=== PATIENT | male | born 2000 | race Caucasian/White ===

== ENCOUNTER 2022-06-11 22:40 | Emergency (ER) | payer SELFPAY ==
[2022-06-11 22:55] VITALS: BP 140/74; PULSE 80; RESP 18; TEMP 36.6; O2SAT 99; BMI 23.0
[2022-06-11 22:58] VITALS: BP 140/74; PULSE 80; RESP 18; TEMP 36.6; O2SAT 99; BMI 23.0
--- NOTE | 2022-06-11 23:04 | CRLHL7_ITS ---
For Patients: As a result of the Century Cures Act, medical imaging exams and procedure reports are released immediately into your electronic medical record. You may view this report before your referring provider. If you have questions, please contact your health care provider. Indication: Pain after fall from ladder. Technique: Right wrist, 3 views Comparison: None. Findings: Bones: Lucency through the scaphoid is seen best on the AP projection extends to the cortical surface. Joint spaces: Unremarkable. Soft tissues: Unremarkable. Impression: Questionable nondisplaced scaphoid fracture. Consider dedicated navicular view if there is snuffbox tenderness. Dictated by Fredis Salvador MD @ 06/11/2022 11:58:34 PM (Electronically Signed)
--- NOTE | 2022-06-11 23:37 | ED.UPPEXIN ---
HPI - Extremity Injury (Upper) General Chief Complaint: Extremity Pain/Injury, Upper Stated Complaint: Fell off roof earlier, right wrist swelling Time Seen by Provider: 06/11/22 22:49 History of Present Illness HPI narrative: Pt is a 22 year old gentleman who fell off of a ladder today landing on his right wrist. Pt has 5/10 pain in the wrist as well as limited ROM. No difficulty with the hand or fingers. No neurological defects and good circulation. Pt did not hit head. No LOC. No treatments prior to arrival. Related Data Home Medications Medication Instructions Recorded Confirmed No Known Home Medications 06/11/22 06/11/22 Allergies Allergy/AdvReac Type Severity Reaction Status Date / Time No Known Drug Allergies Allergy Verified 06/11/22 22:58 Review of Systems Status of ROS: Reports: 10 or more systems reviewed and unremarkable except as noted in History and below [facility] Medical History (Updated 06/11/22 @ 23:58 by Yayo Williamson MD) No significant past medical history Surgical History H/O inguinal hernia repair Social History Smoking Status: Never smoker Do you use any of these nicotine containing products: Vaping Products Second hand tobacco smoke exposure: No How often do you have a drink containing alcohol: never How often do you have six or more drinks on one occasion: Never AUDIT-C Alcohol total score: 0 Non-prescribed substance use: denies use Exam Narrative: Exam Narrative: EXAM GENERAL: Patient appears comfortable and well. EYES: No scleral icterus. ENT: Tympanic membranes and oropharynx normal. THYROID: no thyroid nodules or thyromegaly. LYMPH: No supraclavicular or cervical lymphadenopathy. SKIN: Minor scrapes right elbow EXT: Mild swelling with his right wrist. No neural muscular or vascular defects. HEART: Regular rate and rhythm with no murmurs, rubs, or gallops. LUNGS: Clear to auscultation bilaterally with no crackles or wheezes. ABD: Soft, non tender, non distended. PSYCH: Good eye contact, speech is not pressured. Const: Vital Signs, click to edit/add: Vital Signs - 24 hr 06/11/22 22:55 06/11/22 22:58 Temperature 97.8 F 97.8 F Pulse Rate [Right Pulse Oximeter] 80 80 Respiratory Rate 18 18 Blood Pressure [Le ft Upper Arm] 140/74 H 140/74 H Pulse Oximetry 99 99 Oxygen Delivery Me thod Room Air Room Air Course Course Hospital Course: X-ray series right wrist is negative upon my review. Patient is up-to-date on his tetanus shot. Vital Signs Vital signs: Initial Vital Signs Temperature 97.8 F 06/11/22 22:55 Temperature Source Temporal Artery Scan 06/11/22 22:55 Pulse Rate 80 06/11/22 22:55 Respiratory Rate 18 06/11/22 22:55 Blood Pressure 140/74 H 06/11/22 22:55 Blood Pressure Mean 96 06/11/22 22:55 Blood Pressure Position Sitting 06/11/22 22:55 Pulse Oximetry 99 06/11/22 22:55 Oxygen Delivery Method 06/11/22 22:55 Vital Signs Temperature 97.8 F 06/11/22 22:55 Pulse Rate 80 06/11/22 22:55 Respiratory Rate 18 06/11/22 22:55 Blood Pressure 140/74 H 06/11/22 22:55 Pulse Oximetry 99 06/11/22 22:55 Oxygen Delivery Method 06/11/22 22:55 Temperature 97.8 F 06/11/22 22:58 Pulse Rate 80 06/11/22 22:58 Respiratory Rate 18 06/11/22 22:58 Blood Pressure 140/74 H 06/11/22 22:58 Pulse Oximetry 99 06/11/22 22:58 Oxygen Delivery Method 06/11/22 22:58 MDM - Extremity Injury (Upper) MDM Narrative Medical decision making narrative: Pt presents with a wrist injury. Pt's x ray is negative upon my review. Pt treated wit spint, ice, rest, tyelnol and motrin. Differential Diagnosis Differential diagnosis: Likely sprain and strain of wrist, fracture of wrist and fracture of hand Discharge Plan Discharge Clinical Impression: Sprain and strain of wrist Patient Disposition: Home, Self-Care Condition: Stable Instructions: Wrist Sprain (ED) Additional Instructions: Splint as needed Ice Tylenol Motrin Activity Level: No Restrictions Discharge Diet: Regular Prescriptions: No Action No Known Home Medications Follow Up/Referrals: Provider,Not a Local [Primary Care Provider] - Stand Alone Forms: [employer] Info Instructions
--- OUTSIDE RECORDS SUMMARY | 2022-06-11 23:43 | XMS_ITS | Encounter Summary ---
:2000 Author Organization [facility] Address [address] [place] [id number] Care Team Providers Name Role Phone No Ref-Primary, Physician Primary Care Provider [phone] Reason for Referral Diagnostic Imaging Ultrasound (Routine) - Pending Review Specialty Diagnoses / Procedures Referred By Contact Refer red To Contact Diagnoses Epididymitis, left Jesus Palafox PA-C Procedures US Testicular & Scrotum w [facility] [address] [place] [address] 0 Referral ID Status Reason Start Date Expiration Date Visits V isits Requested Authorized [id number] Pending 12/15/2021 12/15/2022 1 1 Review Reason for Visit Diagnostic Imaging Ultrasound (Routine) - Pending Review Specialty Diagnoses / Procedures Referred By Contact Refer red To Contact Diagnoses Epididymitis, left Jesus Palafox PA-C Procedures US Testicular & Scrotum w [facility] [address] [place] [address] 0 Referral ID Status Reason Start Date Expiration Date Visits V isits Requested Authorized [id number] Pending 12/15/2021 12/15/2022 1 1 Review Encounter Details Date Type Department Care Team Description 12/15/2021 [facility] Jesus Palafox Epi didymitis, left [facility] [address] [place] [id number] [phone] Social History Tobacco Use Types Packs/Day Years Used Date Current Some Day Smoker Smokeless Tobacco: Never Used Comments: vape Alcohol Use Standard Drinks/Week Comments Not Currently 0 (1 standard drink = 0.6 oz pure alcoho l) Sex Assigned at Date Recorded Male 12/17/2021 12:34 AM CDT COVID-19 Exposure Response Date Recorded In the last month, have you been in contact with No / Unsure 12/15/2021 2:43 PM CDT someone who was confirmed or suspected to have Coronavirus / COVID-19? documented as of this encounter Medications at Time of Discharge Medication Sig Dispensed Refills Start Date End Date cephALEXin (KEFLEX) 500 Take 500 mg by mouth 0 MG capsule 2 times daily ibuprofen (ADVIL/MOTRIN) Take 1 tablet (800 30 tablet 0 04/2022 800 MG mg) by mouth every 8 tabletIndications: hours as needed for Epididymitis, left, moderate pain Epidermoid cyst of skin of inguinal region ondansetron (ZOFRAN) 4 TAKE 1 TABLET BY 0 12/06/2 022 MG tablet MOUTH EVERY 6 HOURS NEEDED sulfamethoxazole-trimeth Take 1 tablet by 20 tablet 0 12/1512/25/2021 oprim (BACTRIM DS) mouth 2 times daily 800-160 MG for 10 days tabletIndications: Epidermoid cyst of skin of inguinal region documented as of this encounter Plan of Treatment Not on filedocumented as of this encounter Procedures Procedure Name Priority Date/Time Associated Comments Diagnosis US TESTICULAR AND STAT 12/15/2021 4:09 PM Epididymitis, lef t Results for this SCROTUM WITH DOPPLER CDT procedu re are in LIMITED the results section. documented in this encounter Results US Testicular & Scrotum w [facility] (12/15/2021 4:09 PM CDT) Anatomical Region Laterality Modality Abdomen/Pelvis Ultrasound Specimen (Source) Anatomical Location Collection Method / Collectio n Time Received Time / Laterality Volume Impressions 12/15/2021 4:31 PM CDT IMPRESSION: 1. ??A 1.3 x 1.1 x 0.6 cm collection wit h complex fluid in the left groin corresponds to palpable abnormalit y and may be a small subdermal abscess or inflamed sebaceous cyst. 2. ??Possible small thrombosed vein late ral to the right testicle. 3. ??Small left hydrocele. JHONNY BREWER MD Narrative 12/15/2021 4:31 PM CDT US TESTICULAR AND SCROTUM WITH DOPPLER LIMITED 12/15/2021 4:09 PM CLINICAL HISTORY: Epididymitis, left TECHNIQUE: Ultrasound of scrotum with co romeo flow and spectral Doppler with waveform analysis performed. COMPARISON: None. FINDINGS: RIGHT: Right testicle measures 4.8 x 3.3 x 1.9 cm. Normal testicle with no masses. Normal arterial duplex a nd normal color flow. Normal epididymis with a 2 mm benign cyst. No h ydrocele. No varicocele. Small vessel lateral to the right testicle alexander s not fill with color without and with Valsalva maneuver and may be a small thrombosed vein. LEFT: Left testicle measures 4.2 x 3.2 x 1.9 cm. Normal testicle with no masses. Normal arterial duplex and no rmal color flow. Normal epididymis with a benign cyst measuring 3 mm. Small hydrocele. No varicocele. The palpable abnormality in the left groin is a subdermal 1.3 x 0.6 x 1.1 cm cystic avascular lesi on containing small amount of complex fluid. Procedure Note Jhonny Brewer MD - 12/15/2021 US TESTICULAR AND SCROTUM WITH DOPPLER L IMITED 12/15/2021 4:09 PM CLINICAL HISTORY: Epididymitis, left TECHNIQUE: Ultrasound of scrotum with co romeo flow and spectral Doppler with waveform analysis performed. COMPARISON: None. FINDINGS: RIGHT: Right testicle measures 4.8 x 3.3 x 1.9 cm. Normal testicle with no masses. Normal arterial duplex a nd normal color flow. Normal epididymis with a 2 mm benign cyst. No h ydrocele. No varicocele. Small vessel lateral to the right testicle alexander s not fill with color without and with Valsalva maneuver and may be a small thrombosed vein. LEFT: Left testicle measures 4.2 x 3.2 x 1.9 cm. Normal testicle with no masses. Normal arterial duplex and no rmal color flow. Normal epididymis with a benign cyst measuring 3 mm. Small hydrocele. No varicocele. The palpable abnormality in the left groin is a subdermal 1.3 x 0.6 x 1.1 cm cystic avascular lesi on containing small amount of complex fluid. IMPRESSION: 1. A 1.3 x 1.1 x 0.6 cm collection with complex fluid in the left groin corresponds to palpable abnormalit y and may be a small subdermal abscess or inflamed sebaceous cyst. 2. Possible small thrombosed vein latera l to the right testicle. 3. Small left hydrocele. 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
--- OUTSIDE RECORDS SUMMARY | 2022-06-11 23:43 | XMS_ITS | Encounter Summary ---
:2000 Author Organization [facility] Address [address] [facility] [address] Care Team Providers Name Role Phone No Ref-Primary, Physician Primary Care Provider [phone] Reason for Referral Consultation (Routine: Next available opening) - Closed Specialty Diagnoses / Procedures Referred By Contact Refer red To Contact Diagnoses Najma Coffey PA-C [facility] [address] [address] [place] [address] [address] [place] [address] Phone: Fax: Referral ID Status Reason Start Date Expiration Date Visits Requ ested Visits Authorized [id number] Closed 12/15/2021 12/15/2022 1 1 Reason for Visit Reason Comments Pain pain in left testicle, x yes terday--- WAS seen last seen at [facility] for stomach and abimael ticle issue Encounter Details Date Type Department Care Team Description 12/15/2021 Office Visit [facility], Nodule of groin (Primary Dx); Urgent Care Blue Yao PA-C Testicular pain, left [id number] [place] [address] [phone] Social History Tobacco Use Types Packs/Day Years [...] / COVID-19? documented as of this encounter Last Filed Vital Signs Vital Sign Reading Time Taken Comments Blood Pressure 110/64 12/15/2021 1:09 PM CDT Pulse 84 12/15/2021 1:09 PM CDT Temperature 36.7 ??C (98 ??F) 12/15/2021 1:09 PM CDT Respiratory Rate 16 12/15/2021 1:09 PM CDT Oxygen Saturation 97% 12/15/2021 1:09 PM CDT Inhaled Oxygen Concentration - - Weight 80.7 kg (178 lb) 12/15/2021 1:09 PM CDT Height - - Body Mass Index - - documented in this encounter Patient Instructions Patient InstructionsMaNajma castellon PA-C - 12/15/2021 12:55 PM CDT Please go to the [facility] for further ervaluaiton and treatment. documented in this encounter Progress Notes Najma Thomas PA-C - 12/15/2021 12:55 PM CDT Assessment & Plan Nodule of groin DDx includes benign mass such as lipoma, possible reactive lymphnode though seems low and superficial, possible superifical skin abscess, sebaceous cyst. Improved initially and then worsening despite appropriate abx. Recommend consideration of US to determine if this is a drainable lesion, further define in terms ofpossible lymphnode. Testicular pain, left Clinically suspicious for epididymitis, though would expect this to be improved with doxycycline. Would recommend STI screening, consider alternative abx. Consider US of the testicle Discussed with provider at [facility] and agreeable to be seen for consideration of US and further treatment and follow up. Pt agreeable. Referral to Acute and Diagnostic Services [facility] has been contacted at [phone] ([place]) to confirm patient acceptance. The transition to Acute & Diagnostic Services Clinic has been discussed with patient, and he agrees with next level of care. Patient understands that evaluation/treatment at [facility] typically takes significantly longer than in clinic/urgent care (>2 hours). Special issues: None Referral placed: Yes Patient has transportation arranged and will travel to the [facility] without delay: Yes Patient aware not to eat or drink. Yes The following provider has assessed this patient for intervention at [facility], and directed the patient for referral: ES Schmidt PA-C Brittney Matheson, PA-C [facility] YARITZA Borrego is a 21 year old male who presents to clinic today for the following health issues: Chief Complaint Patient presents with ??? Pain pain in left testicle, x yesterday--- WAS seen last seen at [facility] for stomach and testicle issue HPI 2 months of chronic abdomen pain and diarrhea, seen by clinic provider in [place]. C diff negative. Seen in ED on for same, and CT scan was negative. Has lost 25 lbs. Then found a lump lateral to the L testicle, treated with abx but uncertain of kind of abx, did get some smaller and now painful. Has planned Follow-up with GI next week for for endoscopy, colonoscopy. Review of Systems Constitutional: Positive for appetite change, fatigue and unexpected weight change (25 lbs, has appropriate fu as per HPI ). Negative for fever. HENT: Negative. Eyes: Negative. Respiratory: Negative. Cardiovascular: Negative. Gastrointestinal: Positive for abdominal pain (chornic, has GI fu plan ), diarrhea and nausea. Genitourinary: Positive for dysuria and testicular pain. Negative for decreased urine volume, difficulty urinating, frequency, genital sores, hematuria, penile discharge, scrotal swelling and urgency. Musculoskeletal: Negative. Skin: Negative. Neurological: Negative. Psychiatric/Behavioral: Negative. Objective BP 110/64 (BP Location: Right arm, Patient Position: Chair, Cuff Size: Adult Regular) Pulse 84 Temp 98 ??F (36.7 ??C) (Oral) Resp 16 Wt 80.7 kg (178 lb) SpO2 97% Physical Exam nad appears well Abdomen: BS active, soft, nondistended, nontender to light or deep palpation. No rebound or peritoneal signs noted. No masses or hsm. exam: damien stage 5, testicles decended B, L with tender epidimys but otherwise nontender. No swelling or masses. R testicle without masses or tenderness. There is a 2 cm firm nodule that is TTP just lateral to the scrotum adjacent to the inguinal region.There appears to be a small central pore, it is well circumscized, no erythema or cellulitis noted. He does have mild erythema in the inguinal and medial thigh crease B. 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
--- OUTSIDE RECORDS SUMMARY | 2022-06-11 23:43 | XMS_ITS | Encounter Summary ---
:2000 Author Organization [facility] Address [facility] [place] [address] Care Team Providers Name Role Phone No Ref-Primary, Physician Primary Care Provider [phone] Reason for Referral Consultation (Routine: Next available opening) - Pending Review Specialty Diagnoses / Procedures Referred By Contact Refer red To Contact Dermatology Diagnoses Epidermoid cyst of skin of inguinal region Jesus Palafox PA-C [facility] [address] [place], [place] [address] [facility] [address] [place] [address] Phone: Referral ID Status Reason Start Date Expiration Date Visits V isits Requested Authorized [id number] Pending 12/15/2021 12/15/2022 1 1 Review iagnostic Imaging Ultrasound (Routine) - Pending Review Specialty Diagnoses / Procedures Referred By Contact Refer red To Contact Diagnoses Epidermoid cyst of skin of inguinal region Jesus Palafox PA-C Procedures US Lower Extremity Non Vascular Left [address] [place], [place] [address] Referral ID Status Reason Start Date Expiration Date Visits V isits Requested Authorized [id number] Pending 12/15/2021 12/15/2022 1 1 Review iagnostic Imaging Ultrasound (Routine) - Pending Review Specialty Diagnoses / Procedures Referred By Contact Refer red To Contact Diagnoses Epididymitis, left Jesus Palafox PA-C Procedures US Testicular & Scrotum w Doppler Ltd [address] [place], [place] [address] Referral ID Status Reason Start Date Expiration Date Visits V isits Requested Authorized [id number] Pending 12/15/2021 12/15/2022 1 1 Review Reason for Visit Reason Comments Testicular Problem Left sided bump and pain X 2 -3 weeks Consultation (Routine: Next available opening) - Closed Specialty Diagnoses / Procedures Referred By Contact Refer red To Contact Diagnoses Najma Coffey PA-C [facility] [address] [place], [place] [address] [address] [place] [address] Phone: Fax: Referral ID Status Reason Start Date Expiration Date Visits Requ ested Visits Authorized [id number] Closed 12/15/2021 12/15/2022 1 1 Encounter Details Date Type Department Care Team Description 12/15/2021 Office Visit [facility] Jesus Palafox, Epidid ymitis, left (Primary Dx); [facility] [place] PA-C Epidermoid cyst of skin of inguinal marah on; [address] [facility] [address] Hydrocele, left [address] [place] [id number] Social History Tobacco Use Types Packs/Day Years [...] Sign Reading Time Taken Comments Blood Pressure 133/92 12/15/2021 2:46 PM CDT Pulse 85 12/15/2021 2:46 PM CDT Temperature 36.8 ??C (98.2 ??F) 12/15/2021 2:46 PM CDT Respiratory Rate 18 12/15/2021 2:46 PM CDT Oxygen Saturation 97% 12/15/2021 2:46 PM CDT Inhaled Oxygen Concentration - - Weight 80.7 kg (178 lb) 12/15/2021 2:46 PM CDT Height - - Body Mass Index - - documented in this encounter Progress Notes Jesus Palafox PA-C - 12/15/2021 2:30 PM CDT Assessment & Plan Epididymitis, left Patient has some mild tenderness in this area Motrin prn for discomfort STD pending Check my chart for results - US Testicular & Scrotum w Doppler Ltd; Future - UA with Microscopic reflex to Culture - NEISSERIA GONORRHOEA PCR - CHLAMYDIA TRACHOMATIS PCR - ibuprofen (ADVIL/MOTRIN) 800 MG tablet; Take 1 tablet (800 mg) by mouth every 8 hours as needed for moderate pain Epidermoid cyst of skin of inguinal region An epidermoid cyst is a small abnormal growth in the top layers of the skin. It's filled with keratin, the same proteins that make up your hair and nails. These cysts grow slowly. They can grow anywhere on the body. But they are most often found on the face, behind the ears, and on the chest or upper back. Trial course of bactrim for this If this fails to resolve then it may need to be surgically removed Referral for derm given to patient - US Lower Extremity Non Vascular Left; Future - sulfamethoxazole-trimethoprim (BACTRIM DS) 800-160 MG tablet; Take 1 tablet by mouth 2 times dailyfor 10 days - ibuprofen (ADVIL/MOTRIN) 800 MG tablet; Take 1 tablet (800 mg) by mouth every 8 hours as needed for moderate pain - Adult Dermatology Referral; Future Hydrocele, left The testicles first form in the abdomen of the male fetus. Just before , the testicles move down into the scrotum. As this happens, fluid from the abdomen may pass into the scrotum and become sealed off there in a small sac. This is called a non-communicating hydrocele. In some babies, the passage between the abdomen and the scrotum remains open. In this case, the bulge may get bigger and smaller as the fluid passes back and forth from the abdomen to the scrotum. Thisis called a communicating hydrocele. The danger of this second kind of hydrocele is that it can lead to a hernia. A hernia looks like a painless bulge in the groin or scrotum. A hernia in a baby can cause tissue (gangrene) and rupture of the intestine. This is a life- threatening emergency and requires surgery right away. So you should watch for this condition. Most hydroceles shrink and disappear by the age of 1 or 2 years and need no treatment. If the hydrocele doesn't go away by 2 years of age, it may need to be corrected with surgery. Home care A small hydrocele won't interfere in any way with normal activity. You don't need to take any special precautions. Just observe the size of your baby's scrotum as you provide daily care and tell your child's healthcare provider right away if you notice any changes. CONSULTATION/REFERRAL to Derm for dermoid cyst removal No follow-ups on file. Jesus Palafox PA-C [facility] Results for orders placed or performed during the hospital encounter of 12/15/21 US Testicular & Scrotum w Doppler Ltd Status: None Narrative US TESTICULAR AND SCROTUM WITH DOPPLER LIMITED 12/15/2021 4:09 PM CLINICAL HISTORY: Epididymitis, left TECHNIQUE: Ultrasound of scrotum with color flow and spectral Doppler with waveform analysis performed. COMPARISON: None. FINDINGS: RIGHT: Right testicle measures 4.8 x 3.3 x 1.9 cm. Normal testicle with no masses. Normal arterial duplex and normal color flow. Normal epididymis with a 2 mm benign cyst. No hydrocele. No varicocele. Small vessel lateral to the right testicle does not fill with color without and with Valsalva maneuver and may be a small thrombosed vein. LEFT: Left testicle measures 4.2 x 3.2 x 1.9 cm. Normal testicle with no masses. Normal arterial duplex and normal color flow. Normal epididymis with a benign cyst measuring 3 mm. Small hydrocele. No varicocele. The palpable abnormality in the left groin is a subdermal 1.3 x 0.6 x 1.1 cm cystic avascular lesion containing small amount of complex fluid. Impression IMPRESSION: 1. A 1.3 x 1.1 x 0.6 cm collection with complex fluid in the left groin corresponds to palpable abnormality and may be a small subdermal abscess or inflamed sebaceous cyst. 2. Possible small thrombosed vein lateral to the right testicle. 3. Small left hydrocele. JHONNY BREWER MD Results for orders placed or performed in visit on 12/15/21 UA with Microscopic reflex to Culture Status: Abnormal Specimen: Urine, Midstream Result Value Ref Range Color Urine Yellow Colorless, Straw, Light Yellow, Yellow Appearance Urine Clear Clear Glucose Urine Negative Negative mg/dL Bilirubin Urine Negative Negative Ketones Urine 10 (A) Negative mg/dL Specific Dozier Urine 1.023 1.003 - 1.035 Blood Urine Negative Negative pH Urine 5.5 5.0 - 7.0 Protein Albumin Urine 10 (A) Negative mg/dL Urobilinogen Urine Normal Normal, 2.0 mg/dL Nitrite Urine Negative Negative Leukocyte Esterase Urine Small (A) Negative Mucus Urine Present (A) None Seen /LPF RBC Urine 1 <=2 /HPF WBC Urine 4 <=5 /HPF Squamous Epithelials Urine <1 <=1 /HPF Narrative Urine Culture not indicated Subjective Elmo is a 21 year old who presents for the following health issues HPI Genitourinary - Male Onset/Duration: noticed lump X 2-3 weeks ago Description: Dysuria (painful urination): no} Hematuria (blood in urine): no Frequency: no Waking at night to urinate: no Hesitancy (delay in urine): no Retention (unable to empty): no Decrease in urinary flow: no Incontinence: no Progression of Symptoms: Treated with anti biotics, started 12/06/21, missed 2 doses recently. Symptoms were initially improving and have since worsend Accompanying Signs & Symptoms: Fever: no Back/Flank pain: no Urethral discharge: YES- possibly clear discharge after urinating X 1 episode on 12/13/21, denies painassociated with this Testicle lumps/masses/pain: YES- lump left testicle, pea size Nausea and/or vomiting: YES- but not related to this per patient, being treated for this X 2 months with [facility] and [facility] for upset GI symptoms Abdominal pain: YES History: History of frequent UTI???s: no History of kidney stones: no History of hernias: YES- inguinal, repaired 2019-right sided Personal or Family history of Prostate problems: no Sexually active: YES Precipitating or alleviating factors: recently shaved in area, not if sure related. Anti Biotics seem to have been working. Has since restarted anti biotics X 3 days Therapies tried and outcome: Anti biotics, anti nausea meds. Review of Systems Constitutional, HEENT, cardiovascular, pulmonary, gi and gu systems are negative, except as otherwise noted. Objective Wt 80.7 kg (178 lb) There is no height or weight on file to calculate BMI. Physical Exam GENERAL: healthy, alert and no distress ABDOMEN: soft, nontender, no hepatosplenomegaly, no masses and bowel sounds normal (male): epididymal enlargement left, hydrocele present left, no hernias and penis normal without urethral discharge MS: no gross musculoskeletal defects noted, no edema SKIN: Positive for 1 cm cyst in area between scrotum and medial leg NEURO: Normal strength and tone, mentation intact and speech normal PSYCH: mentation appears normal, affect normal/bright documented in this encounter Plan of Treatment Scheduled Referrals Name Type Priority Associated Order Schedule Diagnoses Adult Dermatology Referral Routine: Next Epidermoid cyst of Exp ected: Referral available opening skin of inguinal 2021 region (Approximate), Expires: 12/15/2022 documented as of this encounter Procedures Procedure Name Priority Date/Time Associated Comments Diagnosis ROUTINE UA WITH Routine 12/15/2021 3:13 PM Epididymitis, left Results for this MICROSCOPIC REFLEX TO CDT proced ure are in CULTURE the results section. NEISSERIA GONORRHOEAE Routine 12/15/2021 3:13 PM Epididymitis, left Results for this PCR CDT procedure are i n the results section. CHLAMYDIA TRACHOMATIS Routine 12/15/2021 3:13 PM Epididymitis, left Results for this PCR CDT procedure are i n the results section. documented in this encounter [...] hydrocele. JHONNY BREWER MD Jesus Palafox PA-C G US ORDERABLES CHLAMYDIA TRACHOMATIS PCR (12/15/2021 3:13 PM CDT) ExactFlat Method Time Signature Chlamydia Negative Negative 12/16/2021 [facility] IDD trachomatis 11:52 AM CDT LABORATORY Comment: A negative result by transcript ion mediated amplification does not preclude the presence of C. trachomatis infection because results are dependent on proper and adequate collection, absence of inhibito rs and sufficient rRNA to be detected. Specimen Anatomical Collection Method Collection Time Receive d Time (Source) Location / / Volume Laterality Urine VOIDED URINE Non-blood 12/15/2021 3:13 PM 2 4:00 SPECIMEN / Unknown Collection / CDT PM CDT Unknown Jesus Palafox PA-C LAB - MICRO GENERAL ORDERABL ES Performing Organization Address City/State/ZIP Code Phon e Number [facility] ID[facility] LABORATORY [facility] [place] [address] [facility], [address] NEISSERIA GONORRHOEA PCR (12/15/2021 3:13 PM CDT) ExactFlat Method Time Signature Neisseria Negative Negative 12/16/2021 [facility] IDD gonorrhoeae 11:52 AM CDT LABORATORY Comment: Negative for N. gonorrhoeae rRN A by wool cleaner mediated amplification. A negative result by wool cleaner mediate d amplification does not preclude the presence of C. trachomatis infection bec ause results are dependent on proper and adequate collection, absence of inhibito rs and sufficient rRNA to be detected. Specimen Anatomical Collection Method Collection Time Receive d Time (Source) Location / / Volume Laterality Urine VOIDED URINE Non-blood 12/15/2021 3:13 PM 4:00 SPECIMEN / Unknown Collection / CDT PM CDT Unknown Jesus Palafox PA-C LAB - MICRO GENERAL ORDERABL ES Performing Organization Address City/State/ZIP Code Phon e Number [facility] IDD LABORATORY [facility] [place] [address] [facility], [address] (ABNORMAL) UA with Microscopic reflex to Culture (12/15/2021 3:13 PM CDT) [facility] RedKLEVER Method Time Signature Color Urine Yellow Colorless, 12/15/2021 LABORATORY Straw, 3:38 PM CDT Light Yellow, Yellow Appearance Urine Clear Clear 12/15/2021 RH LABORATOR Y 3:38 PM CDT Glucose Urine Negative Negative 12/15/2021 LABORATORY mg/dL 3:38 PM CDT Bilirubin Urine Negative Negative 12/15/2021 LABORATORY 3:38 PM CDT Ketones Urine 10 (A) Negative 12/15/2021 LABORATORY mg/dL 3:38 PM CDT Specific Dozier 1.023 1.003 - 12/15/2021 RH LABORATOR Y Urine 1.035 3:38 PM CDT Blood Urine Negative Negative 12/15/2021 LABORATORY 3:38 PM CDT pH Urine 5.5 5.0 - 7.0 12/15/2021 LABORATORY 3:38 PM CDT Protein Albumin 10 (A) Negative 12/15/2021 LABORATORY Urine mg/dL 3:38 PM CDT Urobilinogen Normal Normal, 2.0 12/15/2021 LABORATORY Urine mg/dL 3:38 PM CDT Nitrite Urine Negative Negative 12/15/2021 LABORATORY 3:38 PM CDT Leukocyte Small (A) Negative 12/15/2021 LABORATORY Esterase Urine 3:38 PM CDT Mucus Urine Present (A) None Seen 12/15/2021 LABORATORY /LPF 3:38 PM CDT RBC Urine 1 <=2 /HPF 12/15/2021 RH LABORATORY 3:38 PM CDT WBC Urine 4 <=5 /HPF 12/15/2021 RH LABORATORY 3:38 PM CDT Squamous <1 <=1 /HPF 12/15/2021 LABORATORY Epithelials 3:38 PM CDT Urine Specimen Anatomical Collection Method Collection Time Receive d Time (Source) Location / / Volume Laterality Urine MID-STREAM URINE Non-blood 12/15/2021 3:13 PM 12/15 3:26 SPECIMEN / Unknown Collection / CDT PM CDT Unknown Narrative [facility] LABORATORY - 12/15/2021 3:38 PM CDT Urine Culture not indicated Jesus Palafox PA-C LAB - URINE ORDERABLES Performing Organization Address City/State/ZIP [place] [address] Care [address] Lab (1st floor, no room number) documented in this encounter Visit Diagnoses Diagnosis Epididymitis, left - Primary Orchitis and epididymitis, unspecified Epidermoid cyst of skin of inguinal marah on Hydrocele, left Hydrocele, unspecified Epididymitis, left Orchitis and epididymitis, unspecified documented in this encounter 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
--- OUTSIDE RECORDS SUMMARY | 2022-06-11 23:43 | XMS_ITS | Encounter Summary ---
:2000 Author Organization [facility] Address [address] [place] [id number] Care Team Providers Name Role Phone No Ref-Primary, Physician Primary Care Provider [phone] Encounter Details Date Type Department Care Team Description 12/15/2021 Travel Social History Tobacco Use Types Packs/Day Years [...] / COVID-19? documented as of this encounter Plan of Treatment Not on filedocumented as of this encounter Visit Diagnoses Not on filedocumented in this encounter Care Teams Registered Nurse Post Partum Relationship Specialty Start Date End Date No Ref-Primary, Physician PCP - General 12/15/21 documented as of this encounter
--- OUTSIDE RECORDS SUMMARY | 2022-06-11 23:43 | XMS_ITS | Clinical Summary ---
:2000 Author Organization [place] Address [address] [place] [address] Care Team Providers Name Role Phone No Ref-Primary, Physician Primary Care Provider [phone] Allergies Active Allergy Reactions Severity Noted Date Comments Penicillins Unknown 03/11/2018 Unknown reactio n, told allergy as a ki d Shellfish Allergy Shortness Of Breath High 03/11/2018 th roat closes up Medications Medication Sig Dispensed Refills Start Date End Date Status cephALEXin (KEFLEX) Take 500 mg by 0 12/06/2021 Active 500 MG capsule mouth 2 times daily ondansetron (ZOFRAN) 4 TAKE 1 TABLET BY 0 12/06/2021 Active MG tablet MOUTH EVERY 6 HOURS NEEDED ibuprofen Take 1 tablet (800 30 tablet 0 12/15/2021 Active (ADVIL/MOTRIN) 800 MG mg) by mouth every tabletIndications: 8 hours as needed Epididymitis, left, for moderate pain Epidermoid cyst of skin of inguinal region Immunizations Name Administration Dates Next Due COVID-19,PF,Moderna 08/09/2021, 10/12/2020, 09/14/2020 Social History Tobacco Use Types Packs/Day Years Used Date Current Some Day Smoker Smokeless Tobacco: Never Used Comments: vape Alcohol Use Standard Drinks/Week Comments Not Currently 0 (1 standard drink = 0.6 oz pure alcoho l) Sex Assigned at Date Recorded Male 12/17/2021 12:34 AM CDT Last Filed Vital Signs Vital Sign Reading [...] - - Body Mass Index - - Plan of Treatment Health Maintenance Due Date Last Done Comments ADVANCE CARE PLANNING 2000 ANNUAL REVIEW OF HM ORDERS 2000 NICOTINE/TOBACCO CESSATION 2000 COUNSELING Q 1 YR PREVENTIVE CARE VISIT 2000 Pneumococcal Vaccine: 2006 Pediatrics (0 to 5 Years) and At-Risk Patients (6 to 64 Years) (1 - PCV) HIV SCREENING 2015 HEPATITIS C SCREENING 2018 PHQ-2 (once per calendar 09/09/2021 year) COVID-19 Vaccine (4 - 10/04/2021 08/09/2021, 10/12/2020, Booster for Moderna series) 09/14/2020 INFLUENZA VACCINE (#1) 2022 07/15/2018, 07/26/2017, 09/14/2016, Additional history exists DTAP/TDAP/TD IMMUNIZATION 03/14/2028 03/14/2018, 11/25/2012 , (5 - Td or Tdap) 02/22/2012, Additional history exists HPV IMMUNIZATION Completed 05/29/2017, 05/29/2017, 09/14/2016, Additional history exists IPV IMMUNIZATION Aged Out 03/14/2018, 04/30/2005 No longe r eligible based on patient 's age to complete this topic MENINGITIS IMMUNIZATION Completed 03/14/2018, 05/18/2016, 05/18/2016 HEPATITIS B IMMUNIZATION Completed 09/19/2018, 04/15/2018, 03/14/2018 Insurance Payer Benefit Plan Subscriber ID Effective Dates Phone Address Type / Group /BRISEYDA PRIME [id number] 2021-[employer]ir[employer] [phone] [address] X Indemnity MPVA [facility] [id number] [place] [address] [id number] Care Teams 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
[2022-06-12 00:12] VITALS: BP 140/74; PULSE 80; RESP 18; TEMP 36.6
[2022-06-12 00:17] VITALS: BP 135/70; PULSE 84; RESP 18; TEMP 36.6; O2SAT 99
== END 2022-06-12 00:12 | disposition home or self-care (01) ==
PROVIDERS: Emergency Provider Internal Medicine
DX: S63.501A Unspecified sprain of right wrist, initial encounter (principal); S66.811A Strain of other specified muscles, fascia and tendons at wrist and hand level, right hand, initial encounter; W11.XXXA Fall on and from ladder, initial encounter; Y93.9 Activity, unspecified; Y92.9 Unspecified place or not applicable; Y99.9 Unspecified external cause status
CPT/HCPCS: 29125; 73110; 99283

== ENCOUNTER 2022-07-20 19:06 | Emergency (ER) | payer SELFPAY ==
[2022-07-20 19:16] VITALS: BP 138/107; PULSE 67; RESP 20; TEMP 36.1; O2SAT 100; BMI 23.7
--- NOTE | 2022-07-20 19:34 | CT_ITS ---
Patient: SINAI SAHU Facility:?[facility] Patient ID:?[id number] Site Patient ID:?[id number]. Site :?[id number] Study:?CT-Abdomen/Pelvis W/O-07/20/2022 7:53:15 PM Ordering Physician:Keiko Nickerson Final Report: INDICATION: Left abdominal pain TECHNIQUE: CT abdomen and pelvis without contrast. COMPARISON: CT 01/23/2022 FINDINGS: Lower chest: Unremarkable. Liver: Unremarkable. Gallbladder and bile ducts: Unremarkable. Spleen: Unremarkable. Pancreas: Unremarkable. Adrenal glands: Unremarkable. Kidneys: Unremarkable. No kidney or ureteral stones and no hydronephrosis. GI tract: The cecum and appendix in the right upper quadrant and a loop bowel projects anterior the into the right lower quadrant. Findings are concerning for internal hernia. This appears similar to 01/23/2022. No obstruction. No significant inflammatory changes. Appendix is normal. Vascular structures: Unremarkable. Lymph nodes: Unremarkable. Miscellaneous: Evidence of prior right inguinal hernia repair. No free air or significant free fluid. Pelvic Organs: Unremarkable. Bones: Unremarkable for age. IMPRESSION: 1. No acute abnormalities in the abdomen or pelvis. 2. Prior right inguinal hernia repair. There is likely an internal hernia in the right lower quadrant. No evidence of obstruction or focal inflammatory changes. Please note that all CT scans at this facility use dose modulation, iterative reconstruction, and/or weight-based dosing when appropriate to reduce radiation dose to as low as reasonably achievable. Dictated by Nicola Denny MD @ 07/20/2022 8:10:05 PM Signed by:?Nicola Denny MD @07/20/2022 8:10:05 PM (Electronic Signature)
--- NOTE | 2022-07-20 19:36 | ED_ITS ---
HPI - Abdominal Pain General Chief Complaint: Abdominal Pain Stated Complaint: Left side abdominal pain Time Seen by Provider: 07/20/22 19:30 History of Present Illness HPI narrative: This 22-year-old male comes in reporting left-sided abdominal pain and flank pain that began this morning. He states that he has had some pain in his abdomen on and off over the past year more but nothing this severe and this localized on the left side. He is squirming and pacing in the room in distinct discomfort. He has had some associated nausea. He does not report any personal or family history of kidney stones. He does not report any fever or constipation or dysuria symptoms. Related Data Home Medications Medication Instructions Recorded Confirmed pink pill 07/20/22 Allergies Allergy/AdvReac Type Severity Reaction Status Date / Time shellfish derived Allergy Severe Anaphylaxis Verified 07/20/22 19:21 Penicillins Allergy Unknown Verified 07/20/22 19:21 some kind of anesthesia Allergy Mild hives Uncoded 07/20/22 19:21 Review of Systems Status of ROS Reports: 10 or more systems reviewed and unremarkable except as noted in History and below Narrative Constitutional: No fevers, no weight gain or loss. Eyes: No discharge. No vision changes. HENT: No congestion, no sore throat, no ear pain. Cardiovascular: No chest pain, no palpitations. Respiratory: No shortness of breath, no wheezes, no cough. Gastrointestinal: No vomiting, no diarrhea. Left-sided abdominal pain and flank pain. Genitourinary: No dysuria, no hematuria. Musculoskeletal: Normal range of motion. Skin: No rashes, no pruritis. Neurological: No dizziness, weakness, sensory change, speech change. Endo/Heme/Allergies: No bruising or bleeding. No polydipsia. Pysch: no suicidality, no anxiety, no insomnia. All other systems reviewed and are negative. [facility] Medical History (Updated 07/20/22 @ 21:10 by Krishan Nance MD) No significant past medical history Surgical History H/O inguinal hernia repair Social History Smoking Status: Never smoker Do you use any of these nicotine containing products: Vaping Products Second hand tobacco smoke exposure: No How often do you have a drink containing alcohol: never How often do you have six or more drinks on one occasion: Never AUDIT-C Alcohol total score: 0 Non-prescribed substance use: denies use Exam Narrative: Exam Narrative: Constitutional: Well-developed, well-nourished, no acute distress. HEENT: Normocephalic, atraumatic. Neck: Normal range of motion. Nontender. Supple. Heart: Regular. No murmurs. Normal rate. Intact distal pulses. Lungs: Clear to auscultation. No chest discomfort. No wheezes, rhonchi, or rales. Abdomen: Normal bowel sounds. Tenderness in the left abdomen and left elliott. Genitalia: Deferred. Back: No midline tenderness. Normal range of motion. Extremities: Normal range of motion. No injury. Skin: Intact. No rash. Warm. No erythema or pallor. Neurologic: No altered sensation. No weakness. Alert and oriented. Psychiatric: No suicidality. No anxiety or depression. No insomnia. Nursing notes and vitals signs are reviewed. Const: Vital Signs, click to edit/add: Vital Signs - 24 hr 07/20/22 19:16 07/20/22 20:48 Temperature 97.0 F L Pulse Rate [Left P ulse Oximeter] 67 Respiratory Rate 20 Blood Pressure [Ri ght Upper Arm] 138/107 H Pulse Oximetry 100 97 Oxygen Delivery Me thod Room Air Course Vital Signs Vital signs: Initial Vital Signs Temperature 97.0 F L 07/20/22 19:16 Temperature Source Temporal Artery Scan 07/20/22 19:16 Pulse Rate 67 07/20/22 19:16 Pulse Rhythm 07/20/22 19:16 Respiratory Rate 20 07/20/22 19:16 Blood Pressure 138/107 H 07/20/22 19:16 Blood Pressure Mean 117 07/20/22 19:16 Blood Pressure Position Sitting 07/20/22 19:16 Pulse Oximetry 100 07/20/22 19:16 Oxygen Delivery Method 07/20/22 19:16 Vital Signs Temperature 97.0 F L 07/20/22 19:16 Pulse Rate 67 07/20/22 19:16 Respiratory Rate 20 07/20/22 19:16 Blood Pressure 138/107 H 07/20/22 19:16 Pulse Oximetry 100 07/20/22 19:16 Oxygen Delivery Method 07/20/22 19:16 Temperature 97.0 F L 07/20/22 19:16 Pulse Rate 67 07/20/22 19:16 Respiratory Rate 20 07/20/22 19:16 Blood Pressure 138/107 H 07/20/22 19:16 Pulse Oximetry 97 07/20/22 20:48 Oxygen Delivery Method 07/20/22 19:16 MDM - Abdominal Pain MDM Narrative Medical decision making narrative: This patient comes in with severe left-sided abdominal pain. He was pacing in the room and constantly moving trying to get comfortable. His presentation is suspicious for a kidney stone. CT scan of the abdomen and pelvis is obtained wh ich shows findings of a hernia repair on the right side with the possible uncomplicated internal hernia. The radiologist did not report any sign of ureteral stone or hydronephrosis. On my assessment of the images it does appear that there is a very small stone that is now in the bladder. The patient received pain medicines including Toradol 30 mg and Dilaudid 0.5 mg. This brought complete relief of his pain. I explained the findings of the CT results to the patient and provided a prescription for Toradol. He is okay to return home and can follow-up with his primary physician or the surgeon involved in the hernia repair if needed. Lab Data Labs: Lab Results 07/20/22 07/20/22 Range/Units 19:55 19:55 WBC 15.35 H (4.50-11.00) K/uL RBC 5.51 (4.30-5.90) m/uL Hgb 16.4 (13.5-17.5) gm/dL Hct 46.8 (37.0-53.0) % MCV 85 (80-100) fL MCH 30 (26-34) pg MCHC 35 (32-36) gm/dL RDW Coeff of Jessica 11.5 (11.5-15.5) % Plt Count 273 (140-440) K/uL Neut % (Auto) 86.1 H (42.0-72.0) % Lymph % (Auto) 8.3 L (20-44) % Seneca % (Auto) 4.4 (0.0-11.0) % Eos % (Auto) 0.7 (0.0-7.0) % Baso % (Auto) 0.2 (0.0-3.0) % Neut # (Auto) 13.20 H (1.7-7.0) K/uL Lymph # (Auto) 1.30 (0.90-2.90) K/uL Seneca # (Auto) 0.70 (0.00-0.90) K/UL Eos # (Auto) 0.10 (0.00-0.50) K/uL Baso # (Auto) 0.00 (0.00-0.30) K/uL Abs Immat Gran (auto) 0.00 (0.00-0.30) K/uL Imm/Tot Granulo (auto) 0.3 % Sodium 139 (135-149) mmol/L Potassium 4.0 (3.6-5.1) mmol/L Chloride 102 (96-114) mmol/L Carbon Dioxide 25 (20-32) mmol/L BUN 14 (5-24) mg/dL Creatinine 1.0 (0.5-1.5) mg/dL Estimated Creat Clear 119.64 Estimated GFR 109 ml/min Glucose 92 (60-115) mg/dL Calcium 10.0 (8.4-10.6) mg/dL Discharge Plan Discharge Clinical Impression: Calculus of kidney, Abdominal pain Patient Disposition: Home, Self-Care Condition: Improved Additional Instructions: Take medications as needed and indicated. Follow up with MD or return if worsening. Prescriptions: No Action pink pill Follow Up/Referrals: Provider,Not a Local [Primary Care Provider] - Stand Alone Forms: [email or web address] Info Instructions
[2022-07-20] MEDS: ONDANSETRON 2 MG/ML inj 4 MG IVP (19:54)
[2022-07-20] MEDS: HYDROmorphone 0.5 mg/0.5 ml inj IVP (19:54)
[2022-07-20] MEDS: KETOROLAC 30 MG/ML inj IVP (19:54)
[2022-07-20 20:02] LABS: Basophils Percent Auto 0.2 % (0.0-3.0); Eosinophils Percent Auto 0.7 % (0.0-7.0); Hematocrit 46.8 % (37.0-53.0); Hemoglobin* 16.4 gm/dL (13.5-17.5); Immature Granulocytes Pct Auto 0.3 %; Lymphocytes Percent Auto 8.3 % (20-44); Mean Corpuscular HGB Conc 35 gm/dL (32-36); Mean Corpuscular Hemoglobin 30 pg (26-34); Mean Corpuscular Volume 85 fL (80-100); Monocytes Percent Auto 4.4 % (0.0-11.0); Neutrophils Percent Auto 86.1 % (42.0-72.0); Platelet Count* 273 K/uL (140-440); RDW Coefficient of Variation % 11.5 % (11.5-15.5); Red Blood Count 5.51 m/uL (4.30-5.90); White Blood Count* 15.35 K/uL (4.50-11.00)
[2022-07-20 20:05] LABS: Slide Review Reflex No
[2022-07-20 20:15] LABS: Chloride* 102 mmol/L (96-114); Sodium* 139 mmol/L (135-149)
[2022-07-20 20:18] LABS: Blood Urea Nitrogen* 14 mg/dL (5-24); Carbon Dioxide* 25 mmol/L (20-32); Est. Creatinine Clearance* 119.64; Estimated Glomerular Filt Rate 109 ml/min; Glucose* 92 mg/dL (60-115)
[2022-07-20 20:48] VITALS: O2SAT 97
--- OUTSIDE RECORDS SUMMARY | 2022-07-20 20:51 | XMS_ITS | Encounter Summary ---
:2000 Author Organization [place] Address [address] [place] [address] Care Team Providers Name Role Phone No Ref-Primary, Physician Primary Care Provider [phone] Reason for Referral Diagnostic Imaging Ultrasound (Routine) - Pending Review Specialty Diagnoses / Procedures Referred By Contact Refer red To Contact Diagnoses Epididymitis, left Jesus Palafox PA-C Procedures US Testicular & Scrotum w Doppler Ltd [address] [place] [address] Referral ID Status Reason Start Date Expiration Date Visits V isits Requested Authorized [id number] Pending 12/15/2021 12/15/2022 1 1 Review Reason for Visit Diagnostic Imaging Ultrasound (Routine) - Pending Review Specialty Diagnoses / Procedures Referred By Contact Refer red To Contact Diagnoses Epididymitis, left Jesus Palafox PA-C Procedures US Testicular & Scrotum w Doppler Ltd [address] [place] [address] 0 Referral ID Status Reason Start Date Expiration Date Visits V isits Requested Authorized [id number] Pending 12/15/2021 12/15/2022 1 1 Review Encounter Details Date Type Department Care Team Description 12/15/2021 Hospital Encounter [facility] Jesus Palafox Epi didymitis, left [facility] [address] [place] [id number] [phone] Social History Tobacco Use Types Packs/Day Years Used Date Smoking Tobacco: Some Days Smokeless Tobacco: Never Comments: vape Alcohol Use Standard Drinks/Week Comments [...] hydrocele. JHONNY BREWER MD Jesus Palafox PA-C [facility] US ORDERABLES documented in this encounter Visit Diagnoses Diagnosis Epididymitis, left Orchitis and epididymitis, unspecified documented in this encounter Care Teams Car Bracer Relationship Specialty Start Date End Date No Ref-Primary, Physician PCP - General 12/15/21 documented as of this encounter
--- OUTSIDE RECORDS SUMMARY | 2022-07-20 20:51 | XMS_ITS | Clinical Summary ---
:2000 Author Organization [place] Address [address] [place] [address] Care Team Providers Name Role Phone No Ref-Primary, Physician Primary Care Provider [phone] Allergies Active Allergy Reactions Severity Noted Date [...] NICOTINE/TOBACCO CESSATION 2000 COUNSELING Q 1 YR YEARLY PREVENTIVE VISIT 2000 Pneumococcal Vaccine: 2006 Pediatrics (0 [...] Effective Dates Phone Address Type / Group DC/BRISEYDA PRATERARE PRIME [id number] 2021-Jhonatan [phone] [address] Indemnity MPV[employer] [facility] [phone] [place] [phone] Care Teams Transfer Car Operator Drier Relationship Specialty Start Date End Date No Ref-Primary, Physician PCP - General 12/15/21
--- OUTSIDE RECORDS SUMMARY | 2022-07-20 20:52 | XMS_ITS | Encounter Summary ---
:2000 Author Organization [place] Address [facility] [address] Care Team Providers Name Role Phone No Ref-Primary, Physician Primary Care Provider [phone] Reason for Referral Consultation (Routine: Next available opening) - Closed Specialty Diagnoses / Procedures Referred By Contact Refer red To Contact Diagnoses Najma Coffey PA-C [facility] [address] [address] [place] [address] [address] [place] [address] Phone: Fax: Referral ID Status Reason Start Date Expiration Date Visits Requ ested Visits Authorized [id number] Closed 12/15/2021 12/15/2022 1 1 Reason for Visit Reason Comments Pain pain in left testicle, x yes terday--- WAS seen last seen at [facility] for stomach and abimael ticle issue Encounter Details Date Type Department Care Team Description 12/15/2021 Office Visit [facility], Nodule of groin (Primary Dx); Urgent Care Blue Yao PA-C Testicular pain, left [address] [place] [address] [phone] Social History Tobacco Use Types Packs/Day Years [...] [facility] has been contacted at [phone] ([place]) to confirm patient acceptance. The transition to [facility] has been discussed with patient, and he agrees with next level of care. Patient understands that evaluation/treatment at [facility] typically takes significantly longer than in clinic/urgent care (>2 hours). Special issues: None Referral placed: Yes Patient has transportation arranged and will travel to the [place] without delay: Yes Patient aware not to eat or drink. Yes The following provider has assessed this patient for intervention at [facility], and directed the patient for referral: ES Schmidt PA-C Brittney Matheson, PA-C [facility] YARITZA Borrego is a 21 year old male who presents to clinic today for the following health issues: Chief Complaint Patient presents with ??? Pain pain in left testicle, x yesterday--- WAS seen last seen at [facility] for stomach and testicle issue HPI 2 months of chronic abdomen pain and diarrhea, seen by clinic provider in [place]. C diff negative. Seen in ED on [...] ans documented in this encounter Care Teams Speech Language Pathologist Prn Relationship Specialty Start Date End Date No Ref-Primary, Physician PCP - General 12/15/21 documented as of this encounter
--- OUTSIDE RECORDS SUMMARY | 2022-07-20 20:52 | XMS_ITS | Encounter Summary ---
:2000 Author Organization [place] Address [address] [place] [address] Care Team Providers Name Role Phone No Ref-Primary, Physician Primary Care Provider [phone] Encounter Details Date Type Department Care Team [...] on filedocumented in this encounter Care Teams Wire Machine Cutter Relationship Specialty Start Date End Date No Ref-Primary, Physician PCP - General 12/15/21 documented as of this encounter
--- OUTSIDE RECORDS SUMMARY | 2022-07-20 20:52 | XMS_ITS | Encounter Summary ---
:2000 Author Organization [place] Address [facility] [address] Care Team Providers Name Role Phone No Ref-Primary, Physician Primary Care Provider [phone] Reason for Referral Consultation (Routine: Next available opening) - Pending Review Specialty Diagnoses / Procedures Referred By Contact Refer red To Contact Dermatology Diagnoses Epidermoid cyst of skin of inguinal region Jesus Palafox PA-C [facility] [address] [place], [place] [address] [address] [facility] [address] [place] [address] Phone: Referral ID Status Reason Start Date Expiration Date Visits V isits Requested Authorized [id number] Pending 12/15/2021 12/15/2022 1 1 Review iagnostic Imaging Ultrasound (Routine) - Pending Review Specialty Diagnoses / Procedures Referred By Contact Refer red To Contact Diagnoses Epidermoid cyst of skin of inguinal region Jesus Palafox PA-C Procedures US Lower Extremity Non Vascular Left [address] [place], [place] [address] Referral ID Status Reason Start Date Expiration Date Visits V isits Requested Authorized [id number] Pending 12/15/2021 12/15/2022 1 1 Review iagnostic Imaging Ultrasound (Routine) - Pending Review Specialty Diagnoses / Procedures Referred By Contact Refer red To Contact Diagnoses Epididymitis, left Jesus Palafox PA-C Procedures US Testicular & Scrotum w Doppler Ltd [address] [place], [place] [address] Referral ID Status Reason Start Date Expiration Date Visits V isits Requested Authorized [id number] Pending 12/15/2021 12/15/2022 1 1 Review Reason for Visit Reason Comments Testicular Problem Left sided bump and pain X 2 -3 weeks Consultation (Routine: Next available opening) - Closed Specialty Diagnoses / Procedures Referred By Contact Refer red To Contact Diagnoses Najma Coffey PA-C [facility] [address] [place], [place] [address] [address] [place] [address] Phone: Fax: Referral ID Status Reason Start Date Expiration Date Visits Requ ested Visits Authorized [id number] Closed 12/15/2021 12/15/2022 1 1 Encounter Details Date Type Department Care Team Description 12/15/2021 Office Visit [facility] Jesus Palafox, Epidid ymitis, left (Primary Dx); Clinic Osvaldo SUGGS Epidermoid cyst of skin of inguinal marah on; [address] [facility] [address] [facility] [address] [place] [phone] Social History Tobacco Use Types Packs/Day [...] No follow-ups on file. Jesus Palafox PA-C [facility] Results for orders placed or performed during [...] Ketones Urine 10 (A) Negative mg/dL Specific [place] Urine 1.023 1.003 - 1.035 Blood Urine [...] treated for this X 2 months with [facility] and [facility] for upset GI symptoms Abdominal pain: YES [...] MD Jesus Palafox PA-C IMG US ORDERABLES CHLAMYDIA TRACHOMATIS PCR (12/15/2021 3:13 PM CDT) [facility] Method Time Signature Chlamydia Negative Negative 12/16/2021 [...] Code Phon e Number [facility] [place] [address] Diag. Lab [address] [facility], [address] NEISSERIA GONORRHOEA PCR (12/15/2021 3:13 PM CDT) [facility] [employer] Method Time Signature Neisseria Negative Negative 12/16/2021 [facility] IDD gonorrhoeae 11:52 AM CDT LABORATORY Comment: Negative for N. gonorrhoeae rRN A by agile developer mediated amplification. A negative result by agile developer mediate d amplification does not preclude the [...] Code Phon e Number [facility] [place] [address] Diag. Lab [address] [facility], [address] (ABNORMAL) UA with Microscopic reflex to Culture (12/15/2021 3:13 PM CDT) [facility] Natanael Ulien Method Time Signature Color Urine Yellow Colorless, 12/15/2021 LABORATORY Straw, 3:38 PM CDT Light Yellow, Yellow Appearance Urine Clear Clear 12/15/2021 LABORATOR Y 3:38 PM CDT Glucose Urine Negative Negative 12/15/2021 LABORATORY mg/dL 3:38 PM CDT Bilirubin Urine Negative Negative 12/15/2021 LABORATORY 3:38 PM CDT Ketones Urine 10 (A) Negative 12/15/2021 LABORATORY mg/dL 3:38 PM CDT Specific Formoso 1.023 1.003 - 12/15/2021 LABORATOR Y Urine 1.035 3:38 PM CDT Blood Urine Negative Negative 12/15/2021 LABORATORY 3:38 PM CDT pH Urine 5.5 5.0 - 7.0 12/15/2021 LABORATORY 3:38 PM CDT Protein Albumin 10 (A) Negative 12/15/2021 LABORATORY Urine mg/dL 3:38 PM CDT Urobilinogen Normal Normal, 2.0 12/15/2021 LABORATORY Urine mg/dL 3:38 PM CDT Nitrite Urine Negative Negative 12/15/2021 [facility] LABORATORY 3:38 PM CDT Leukocyte Small (A) Negative 12/15/2021 LABORATORY Esterase Urine 3:38 PM CDT Mucus Urine Present (A) None Seen 12/15/2021 [facility] LABORATORY /LPF 3:38 PM CDT RBC Urine [...] Address City/State/ZIP Code Phon [place] [address] Care Lab [address] Lab (1st floor, no room number) documented in this encounter Visit Diagnoses Diagnosis Epididymitis, left - Primary Orchitis and epididymitis, unspecified Epidermoid cyst of skin of inguinal marah on Hydrocele, left Hydrocele, unspecified Epididymitis, left Orchitis and epididymitis, unspecified documented in this encounter Care Teams Cashier Wrapper Relationship Specialty Start Date End Date No Ref-Primary, Physician PCP - General 12/15/21 documented as of this encounter
[2022-07-20 21:23] VITALS: BP 138/107; PULSE 67; RESP 20; TEMP 36.1
== END 2022-07-20 21:24 | disposition home or self-care (01) ==
PROVIDERS: Emergency Provider Emergency Medicine Emergency Medical Services
DX: N20.0 Calculus of kidney (principal)
CPT/HCPCS: 36415; 74176; 80048; 81001; 85025; 94761; 96374; 96375; 99284; 99285; J1170; J1885; J2405